=== PATIENT | female | born 1960 | race African-American/Black ===

== ENCOUNTER 2016-11-16 10:50 | Emergency (ER) | payer MEDICARE, MEDICAID ==
[~2016-11-16] VITALS: Ht 165.1 cm; Wt 61.0 kg
[~2016-11-16 10:50] MED LIST: SEROQUEL
[2016-11-16 11:58] VITALS: BP 135/79
== END 2016-11-16 14:23 | disposition home or self-care (01) ==
LOC: ER 14:10
DX: M79.641 Pain in right hand (principal); M79.89 Other specified soft tissue disorders; F17.200 Nicotine dependence, unspecified, uncomplicated
CPT/HCPCS: 99283

== ENCOUNTER 2019-02-10 04:13 | Inpatient (IN) | payer MEDICARE, MEDICAID ==
[~2019-02-10] VITALS: Ht 170.2 cm; Wt 77.6 kg
[2019-02-10] MEDS ORDERED: METHYLPREDNISOLONE SOD SUCC 125 MG/2 ML VIAL IV STA (04:49)
[2019-02-10] MEDS ORDERED: ONDANSETRON HCL 4MG/2ML INJ IV STA (04:49)
[2019-02-10] MEDS ORDERED: IPRATROPIUM BROMIDE (0.02%) 0.5MG/2.5ML NEB HHN STA (04:49)
[2019-02-10] MEDS: ALBUTEROL (0.083%) 2.5MG/3ML NEB HHN SCH ×3 (05:05→06:38)
[2019-02-10 05:15] LABS: BASOPHILS % 1.3 % (0.0-2.0); EOSINOPHILS % 2.3 % (0.0-5.0); HEMATOCRIT. 37.1 % (36.0-48.0); HEMOGLOBIN. 12.5 g/dL (12.0-16.0); LYMPHOCYTES % 39.5 % (20.0-50.0); MEAN CORPUSCULAR VOLUME 97.5 fL (81.0-99.0); MEAN PLATELET VOLUME 7.7 fl (7.4-10.4); MONOCYTES % 8.9 % (2.0-8.0); PLATELET 239 x1000/uL (130-400); RED CELL DISTRIBUTION WIDTH 14.3 % (11.6-14.6)
[2019-02-10 05:19] LABS: BG BASE EXCESS -1.9 mmol/L (-2.0-2.0); BG CARBOXYHEMOGLOBIN 4.7 % (0.5-1.5); BG DEOXYHEMOGLOBIN 3.2 % (0.0-5.0); BG FRACTION INSPIRED OXYGEN 28; BG HCO3 ACT 23.2 mmol/L (22.0-26.0); BG METHEMOGLOBIN 0.1 % (0.0-1.5); BG OXYGEN SATURATION 96.6 % (92.0-98.5); BG PCO2 40.5 mmHg (35.0-45.0); BG PH 7.375 (7.350-7.450); BG SAMPLE SITE RIGHT RADIAL; BG TOTAL HEMOGLOBIN 13.7 g/dL (12.0-18.0); BG VENT MODE NASAL CANNULA
[2019-02-10 05:25] LABS: CHLORIDE 113 mEq/L (98-107)
[2019-02-10 08:00] VITALS: BP 132/83
[2019-02-10 09:40] VITALS: BP 132/83
[2019-02-10] MEDS ORDERED: ACETAMINOPHEN 325MG TABLET PO PRN (10:15)
[2019-02-10] MEDS ORDERED: NITROGLYCERIN 0.4MG TABLET SL SL PRN (10:15)
[2019-02-10] MEDS ORDERED: GUAIFENESIN 200MG/10ML SUGAR FREE UDC PO PRN (10:15)
[2019-02-10] MEDS ORDERED: MAGNESIUM/ALUMINUM HYDROXIDE/SIMETHICONE 30ML UDC PO PRN (10:15)
[2019-02-10] MEDS ORDERED: ZOLPIDEM TARTRATE 5MG TABLET PO PRN (10:15)
[2019-02-10] MEDS ORDERED: IPRATROPIUM/ALBUTEROL 0.5-3(2.5)MG/3ML NEB INH PRN (10:15)
[2019-02-10] MEDS ORDERED: LORAZEPAM 0.5MG TABLET PO PRN (10:15)
[2019-02-10] MEDS ORDERED: CLONIDINE 0.1MG TABLET PO PRN (10:15)
[2019-02-10] MEDS ORDERED: ONDANSETRON HCL 4MG/2ML INJ IV PRN (10:15)
[2019-02-10 12:00] VITALS: BP 110/52
[2019-02-10] MEDS: FAMOTIDINE 20MG TABLET PO SCH ×2 (12:37→20:27)
[2019-02-10] MEDS: ENOXAPARIN 40MG/0.4ML SYR SUBCUT SCH (12:37)
[2019-02-10] MEDS: LEVOFLOXACIN 500MG PREMIX 100 ML IV SCH (12:38)
[2019-02-10] MEDS ORDERED: POTASSIUM CHLORIDE 20MEQ/PACKET PO NR (14:45)
[2019-02-10] MEDS ORDERED: LORAZEPAM 2MG/ML CPJ IV PRN (15:00)
[2019-02-10] MEDS: METHYLPREDNISOLONE SOD SUCC 125 MG/2 ML VIAL IV SCH ×2 (15:18→20:29)
[2019-02-10] MEDS: CHLORDIAZEPOXIDE 5 MG CAPSULE PO SCH ×2 (15:31→20:27)
[2019-02-10] MEDS: NICOTINE 21MG PATCH TD SCH (15:32)
[2019-02-10 16:00] VITALS: BP 122/67
[2019-02-10 16:52] LABS: CLARITY URINE CLOUDY (CLEAR); COLOR URINE YELLOW (YELLOW); KETONES URINE NEGATIVE (NEGATIVE); LEUKOCYTE ESTERASE URINE 1+ (NEGATIVE); NITRITE URINE NEGATIVE (NEGATIVE); OCCULT BLOOD URINE 1+ (NEGATIVE); PH URINE 6.5 (4.5-8.0); PROTEIN URINE NEGATIVE (NEGATIVE); SPECIFIC GRAVITY URINE 1.029 (1.005-1.030)
[2019-02-10 17:05] LABS: *AMPHETAMINES SCREEN URINE NEGATIVE (NEGATIVE); *BARBITURATES SCREEN URINE NEGATIVE (NEGATIVE); *BENZODIAZEPINES SCREEN URINE NEGATIVE (NEGATIVE); *COCAINE SCREEN URINE PRESUMTIVE POSITIVE (NEGATIVE); METHADONE URINE SCREEN NEGATIVE (NEGATIVE)
[2019-02-10 17:06] LABS: CANNABINOID URINE SCREEN NEGATIVE (NEGATIVE); OPIATES URINE SCREEN NEGATIVE (NEGATIVE); PHENCYCLIDINE URINE SCREEN NEGATIVE (NEGATIVE)
[2019-02-10] MEDS: MONTELUKAST SODIUM 10MG TABLET PO SCH (18:04)
[2019-02-10] MEDS: THROAT LOZENGES-BENZOCAINE/MENTH/CETYLPYRD CL LOZENGES MM PRN (18:05)
[2019-02-10 20:00] VITALS: BP 122/66
[2019-02-10] MEDS: GUAIFENESIN 600MG ER TABLET PO SCH (20:28)
[2019-02-10] MEDS: FLUTICASONE PROPIONATE 50MCG/SPRAY BOTTLE BOTHNSTRLS SCH (20:28)
[2019-02-10] MEDS: IPRATROPIUM/ALBUTEROL 0.5-3(2.5)MG/3ML NEB HHN SCH (21:15)
[2019-02-11] VITALS: BP 109/61
[2019-02-11] MEDS: IPRATROPIUM/ALBUTEROL 0.5-3(2.5)MG/3ML NEB HHN SCH ×6 (00:31→21:42)
[2019-02-11 04:00] VITALS: BP 135/69
[2019-02-11] MEDS: THROAT LOZENGES-BENZOCAINE/MENTH/CETYLPYRD CL LOZENGES MM PRN ×2 (04:32→11:02)
[2019-02-11] MEDS: KETOROLAC 15MG/ML VIAL IV PRN ×2 (04:32→22:01)
[2019-02-11] MEDS: CHLORDIAZEPOXIDE 5 MG CAPSULE PO SCH ×3 (05:48→22:01)
[2019-02-11] MEDS: METHYLPREDNISOLONE SOD SUCC 125 MG/2 ML VIAL IV SCH ×2 (05:49→13:56)
[2019-02-11 08:00] VITALS: BP 117/73
[2019-02-11] MEDS: FAMOTIDINE 20MG TABLET PO SCH ×2 (08:53→22:01)
[2019-02-11] MEDS: FLUTICASONE PROPIONATE 50MCG/SPRAY BOTTLE BOTHNSTRLS SCH ×2 (08:54→22:04)
[2019-02-11] MEDS: GUAIFENESIN 600MG ER TABLET PO SCH ×2 (08:54→22:01)
[2019-02-11] MEDS: ENOXAPARIN 40MG/0.4ML SYR SUBCUT SCH (08:54)
[2019-02-11] MEDS: DOCUSATE SODIUM 100MG CAPSULE PO PRN ×2 (08:54→17:14)
[2019-02-11] MEDS: NICOTINE 21MG PATCH TD SCH (08:55)
[2019-02-11] MEDS: LEVOFLOXACIN 500MG PREMIX 100 ML IV SCH (11:02)
[2019-02-11 12:00] VITALS: BP 127/76
[2019-02-11 16:00] VITALS: BP 122/71
[2019-02-11] MEDS: BUDESONIDE 0.5MG/2ML NEB HHN SCH ×2 (16:48→21:42)
[2019-02-11] MEDS: MONTELUKAST SODIUM 10MG TABLET PO SCH (17:08)
[2019-02-11 20:00] VITALS: BP_SYST 101; BP_SYST 112; BP_DIAS 80; BP_DIAS 84
[2019-02-11] MEDS: METHYLPREDNISOLONE SOD SUCC 40 MG/ML VIAL IV SCH (22:01)
[2019-02-12] VITALS: BP 120/75
[2019-02-12] MEDS: IPRATROPIUM/ALBUTEROL 0.5-3(2.5)MG/3ML NEB HHN SCH ×6 (01:12→23:51)
[2019-02-12 04:00] VITALS: BP 115/71
[2019-02-12] MEDS: METHYLPREDNISOLONE SOD SUCC 40 MG/ML VIAL IV SCH ×2 (06:48→15:08)
[2019-02-12] MEDS: CHLORDIAZEPOXIDE 5 MG CAPSULE PO SCH ×3 (06:48→21:49)
[2019-02-12 08:00] VITALS: BP 122/84
[2019-02-12] MEDS: FLUTICASONE PROPIONATE 50MCG/SPRAY BOTTLE BOTHNSTRLS SCH ×2 (08:11→20:35)
[2019-02-12] MEDS: FAMOTIDINE 20MG TABLET PO SCH ×2 (08:11→20:35)
[2019-02-12] MEDS: ENOXAPARIN 40MG/0.4ML SYR SUBCUT SCH (08:11)
[2019-02-12] MEDS: GUAIFENESIN 600MG ER TABLET PO SCH ×2 (08:11→20:35)
[2019-02-12] MEDS: NICOTINE 21MG PATCH TD SCH (08:11)
[2019-02-12] MEDS: THROAT LOZENGES-BENZOCAINE/MENTH/CETYLPYRD CL LOZENGES MM PRN ×3 (08:15→21:51)
[2019-02-12] MEDS: BUDESONIDE 0.5MG/2ML NEB HHN SCH ×2 (09:28→19:50)
[2019-02-12] MEDS: LEVOFLOXACIN 500MG PREMIX 100 ML IV SCH (11:10)
[2019-02-12 12:00] VITALS: BP 128/68
[2019-02-12] MEDS: DOCUSATE SODIUM 100MG CAPSULE PO PRN (15:18)
[2019-02-12 16:00] VITALS: BP 111/60
[2019-02-12] MEDS: MONTELUKAST SODIUM 10MG TABLET PO SCH (17:16)
[2019-02-12 20:00] VITALS: BP 123/60
[2019-02-13] VITALS: BP 113/76
[2019-02-13 04:00] VITALS: BP 106/87
[2019-02-13] MEDS: IPRATROPIUM/ALBUTEROL 0.5-3(2.5)MG/3ML NEB HHN SCH ×3 (04:01→12:35)
[2019-02-13] MEDS: CHLORDIAZEPOXIDE 5 MG CAPSULE PO SCH ×2 (05:37→14:58)
[2019-02-13 07:52] VITALS: BP 113/93
[2019-02-13] MEDS ORDERED: PREDNISONE 20MG TABLET PO SCH (09:00)
[2019-02-13] MEDS: BUDESONIDE 0.5MG/2ML NEB HHN SCH (09:30)
[2019-02-13] MEDS: FLUTICASONE PROPIONATE 50MCG/SPRAY BOTTLE BOTHNSTRLS SCH (09:45)
[2019-02-13] MEDS: GUAIFENESIN 600MG ER TABLET PO SCH (09:45)
[2019-02-13] MEDS: NICOTINE 21MG PATCH TD SCH (09:46)
[2019-02-13] MEDS: FAMOTIDINE 20MG TABLET PO SCH (09:46)
[2019-02-13] MEDS: ENOXAPARIN 40MG/0.4ML SYR SUBCUT SCH (09:47)
[2019-02-13] MEDS ORDERED: LEVOFLOXACIN 500MG TABLET PO SCH (11:00)
[2019-02-13 12:00] VITALS: BP 123/62
[2019-02-13 14:25] VITALS: BP 122/62
== END 2019-02-13 15:15 | disposition home or self-care (01) | DRG 917 ==
LOC: ER 04:13 → 5WST 05:09 → EDBEDREQTM 05:11 → EDBEDREQ 05:11 → ENRESERV 07:23 → 5WST 08:53
PROVIDERS: ADMIT Internal Medicine; ATTEND Internal Medicine
DX: T65.91XA Toxic effect of unspecified substance, accidental (unintentional), initial encounter (principal); J96.00 Acute respiratory failure, unspecified whether with hypoxia or hypercapnia; J44.0 Chronic obstructive pulmonary disease with (acute) lower respiratory infection; J68.0 Bronchitis and pneumonitis due to chemicals, gases, fumes and vapors; J44.1 Chronic obstructive pulmonary disease with (acute) exacerbation; N39.0 Urinary tract infection, site not specified; J20.9 Acute bronchitis, unspecified; E87.6 Hypokalemia; F10.10 Alcohol abuse, uncomplicated; F14.10 Cocaine abuse, uncomplicated; F17.210 Nicotine dependence, cigarettes, uncomplicated; J00 Acute nasopharyngitis [common cold]; Z60.2 Problems related to living alone; F12.10 Cannabis abuse, uncomplicated; R49.0 Dysphonia; Z71.51 Drug abuse counseling and surveillance of drug abuser; Y92.89 Other specified places as the place of occurrence of the external cause
CPT/HCPCS: 36415; 36600; 71045; 80061; 80305; 80320; 81003; 82375; 82805; 83036; 83880; 84484; 93005; 93970; 94640; 94644; 96365; 96375; 97161; 97165; 99285; C1893; J1650; J1885; J1956; J2405; J2920; J2930; J7512; J7611; J7620; J7626; G0480